=== PATIENT | male | born 1950 | race African-American/Black ===

== ENCOUNTER 2017-09-16 12:56 | Inpatient (IN) | payer SELFPAY ==
[~2017-09-16] VITALS: Ht 167.6 cm; Wt 51.3 kg
[2017-09-16] MEDS ORDERED: Vancomycin 1 GM in NS 275 ML IV ONE (13:45)
[2017-09-16] MEDS ORDERED: Cefepime HCl 1 GM in NS 55 ML IV SCH (13:45)
--- NOTE | 2017-09-16 14:13 | Emergency Room Report ---
History of Present Illness General Chief Complaint: General Complaint Source: Patient Present Illness HPI Patient is a 67-year-old male brought in by EMS after increased buttock rash. Patient was noted to have increased discoloration as well as swelling to the buttock. History is markedly limited by patient's mental status. He was noted to have some skin sore to the same area. History markedly limited by patient's mental status Allergies: Coded Allergies: No Known Allergies (Unverified , 09/16/17) Patient History Past Medical History: see triage record Past Surgical History: unable to obtain Pertinent Family History: unable to obtain Reviewed Nursing Documentation: PMH: Agreed; PSxH: Agreed Nursing Documentation-PMH Past Medical History: No History, Except For Hx Hypertension: Yes Hx Seizures: Yes Review of Systems All Other Systems: limited - by mental status Physical Exam Vital Signs Date Time Temp Pulse Resp B/P (MAP) Pulse Ox O2 Delivery O2 Flow Rate FiO2 09/16/17 12:53 98.9 100 18 120/77 93 Room Air 99.0 Sp02 EP Interpretation: reviewed, normal General Appearance: normal inspection, no apparent distress, alert, thin, Chronically Ill Head: atraumatic ENT: normal ENT inspection, hearing grossly normal, normal voice Neck: normal inspection, full range of motion, supple, no bony tend Respiratory: normal inspection, lungs clear, normal breath sounds, no respiratory distress, no retraction, no wheezing Cardiovascular #1: regular rate, rhythm, no edema Gastrointestinal: normal inspection, normal bowel sounds, non tender, soft, no guarding, no hernia Genitourinary: no CVA tenderness Musculoskeletal: normal inspection, back normal, normal range of motion Neurologic: normal inspection, alert, responsive, speech normal Psychiatric: normal inspection, judgement/insight normal, mood/affect normal Skin: no rash, other - buttock erythema, induration Medical Decision Making Diagnostic Impression: Primary Impression: Cellulitis and abscess of buttock ER Course Patient presented for buttock rash. Differential diagnosis included was not limited to abscess, cellulitis, decubitus ulcer among others. Because of complexity of patient's case laboratory testing and imaging studies were ordered.The patient was noted to have some erythema. Patient started on IV antibiotics. The patient's buttock appears to have a induration consistent with early abscess. There is no definite fluctuance at this time. Dr. Alf Nolen was contacted for inpatient management. Lab Results Impression Patient was noted to have elevated white blood count. EKG Diagnostic Results Rate: tachycardiac - 126 Rhythm: NSR ST Segments: no acute changes Last Vital Signs Date Time Temp Pulse Resp B/P (MAP) Pulse Ox O2 Delivery O2 Flow Rate FiO2 09/16/17 12:53 98.9 100 18 120/77 93 Room Air 99.0 Status: unchanged Disposition: ADMITTED INPATIENT Condition: Serious Ludin Delaney Sep 16, 2017 14:13
[2017-09-16 14:31] VITALS: BP 130/107
[2017-09-16 14:33] LABS: BASOPHILS % (AUTO) 0.8 % (0.0-2.0); EOSINOPHILS % (AUTO) 0.6 % (0.0-3.0); HEMATOCRIT 44.5 % (42.0-52.0); HEMOGLOBIN 14.9 G/DL (14.2-18.0); LYMPHOCYTES % (AUTO) 12.3 % (20.0-45.0); MEAN CORPUSCULAR VOLUME 90 FL (80-99); MONOCYTES % (AUTO) 7.1 % (1.0-10.0); NEUTROPHILS % (AUTO) 79.2 % (45.0-75.0); PLATELET COUNT 164 K/UL (150-450); RED BLOOD COUNT 4.96 M/UL (4.70-6.10); RED CELL DISTRIBUTION WIDTH 13.6 % (11.6-14.8); WHITE BLOOD COUNT 13.9 K/UL (4.8-10.8)
[2017-09-16 14:46] LABS: ANION GAP 10 mmol/L (5-15); BLOOD UREA NITROGEN 25 mg/dL (7-18); CALCIUM 9.8 MG/DL (8.5-10.1); CARBON DIOXIDE 30 MMOL/L (21-32); CHLORIDE 118 MMOL/L (98-107); CREATININE 0.7 MG/DL (0.55-1.30); POTASSIUM 3.3 MMOL/L (3.5-5.1); SODIUM 158 MMOL/L (136-145)
[2017-09-16 14:54] LABS: APPEARANCE,URINE SLIGHTLY CLOUDY; BILIRUBIN, URINE NEGATIVE (NEGATIVE); GLUCOSE, URINE (UA) NEGATIVE (NEGATIVE); KETONES,URINE 1+ (NEGATIVE); LEUKOCYTE ESTERASE ,URINE 1+ (NEGATIVE); NITRITE,URINE NEGATIVE (NEGATIVE); PH,URINE 7 (4.5-8.0); PROTEIN,URINE 1+ (NEGATIVE); UROBILINOGEN,URINE 4 MG/DL (0.0-1.0)
[2017-09-16 14:57] LABS: COLOR,URINE YELLOW
[2017-09-16 15:01] LABS: ALANINE AMINOTRANSFERASE 34 U/L (12-78); ALBUMIN 3.8 G/DL (3.4-5.0); ALBUMIN/GLOBULIN RATIO 0.8 (1.0-2.7); ALKALINE PHOSPHATASE 115 U/L (46-116); ASPARTATE AMINO TRANSFERASE 21 U/L (15-37); BILIRUBIN,TOTAL 0.6 MG/DL (0.2-1.0); CKMB 0.8 NG/ML (0.0-3.6); CREATINE KINASE 102 U/L (26-308); PHOSPHORUS 2.6 MG/DL (2.5-4.9)
--- NOTE | 2017-09-16 15:52 | Diagnostic Imaging Report ---
Indication: Shortness of breath Technique: One view of the chest Comparison: none Findings: Atelectatic changes are seen at both lung bases, left greater than right. No infiltrates. Normal heart size. Tortuous somewhat ectatic aorta. Left subclavian venous stent is noted. Impression: Bilateral basilar atelectasis. No acute process otherwise
[2017-09-16 15:59] VITALS: BP 94/80
[2017-09-16 17:30] VITALS: BP 125/88
--- NOTE | 2017-09-16 17:30 | History and Physical Report ---
DATE OF ADMISSION: 09/16/2017 TIME: 3 p.m. CONSULTANTS: 1. Chan Wan M.D. 2. Avinash Gaines M.D. 3. Romy Holland M.D. CHIEF COMPLAINT: Right buttock cellulitis and wound. BRIEF HISTORY: This is a 67-year-old male from [facility] presented with the above-mentioned diagnosis for a couple days with increased redness in the right buttock sacral area. The patient came into [place], diagnosed with the right buttock wound, leukocytosis, and cellulitis, and being admitted to medical floor for further treatment. Currently, calm in bed, confused, and nonverbal. PAST MEDICAL HISTORY: Encephalopathy and contracture. PAST SURGICAL HISTORY: Unknown. MEDICATIONS: Vancomycin, cefepime, and metronidazole. ALLERGIES: Denies. SOCIAL HISTORY: Unable to obtain. REVIEW OF SYSTEMS: Unavailable. PHYSICAL EXAMINATION: GENERAL: Lethargic in bed and nonverbal. Contracted at knee and hip. VITAL SIGNS: Show temperature is 100.6, pulse 124, respirations 21, and blood pressure 130/107. CARDIOVASCULAR: No murmur. LUNGS: Distant and clear. ABDOMEN: Bowel sounds positive. Nontender. Nondistended. EXTREMITIES: No cyanosis, clubbing, or edema. Right buttock sacral area on the right with slight 2 inch x 2 inch redness. No skin breakage. NEUROLOGIC: The patient moves all extremities, but slightly weak. LABORATORY AND DIAGNOSTIC DATA: Labs, at this time, show white count 13.9, otherwise CBC is normal. BMP shows sodium 158, potassium 3.3, chloride 118, BUN 25, and glucose 108. INR is 1.0. PTT 23. Urinalysis show 1+ leukocyte esterase. ASSESSMENT: 1. Right buttock cellulitis. 2. Urinary tract infection. 3. Leukocytosis. 4. Hypokalemia. 5. Encephalopathy. 6. Contracture. 7. Renal insufficiency. 8. Hypernatremia. PLAN: 1. Continue premeds. 2. OT, PT, and dietary evaluation. 3. Wound care. 4. CBC and BMP in the morning. 5. Antibiotics per Infectious Disease. 6. Resume home medications. 7. Dr. Wan, Dr. Gaines, Dr. Holland, Dr. Garcia, and Dr. Rendon to consult. 8. We will continue to follow this patient medically. Alf Nolen D.O. DR: ADAN JOB#: [id number] CC:
[2017-09-16] MEDS ORDERED: KEPPRA500 M3 ORAL (18:02)
[2017-09-16] MEDS ORDERED: FENOFIBRATE48 MG ORAL (18:02)
[2017-09-16] MEDS ORDERED: BENZTROPINE MESY1 MG PO (18:02)
[2017-09-16] MEDS ORDERED: DONEPEZIL HCL5 MG ORAL (18:02)
[2017-09-16] MEDS ORDERED: MOM30 ML ORAL (18:02)
[2017-09-16] MEDS ORDERED: LORAZEPAM1 MG ORAL (18:02)
[2017-09-16] MEDS ORDERED: OLANZAPINE10 MG ORAL (18:03)
[2017-09-16] MEDS ORDERED: QUETIAPINE FUMA50 MG ORAL (18:03)
[2017-09-16] MEDS ORDERED: MULTIVITAMINS1 EAC8 ORAL (18:03)
[2017-09-16] MEDS ORDERED: D5 1/2NS 1,000 ML IV SCH (18:30)
[2017-09-16] MEDS ORDERED: Milk of Magnesia 30ml Ud ORAL PRN (18:30)
[2017-09-16] MEDS ORDERED: LORazepam 1mg tab ORAL PRN (18:30)
[2017-09-16] MEDS: Benztropine 1mg tab ORAL SCH (18:55)
[2017-09-16 20:00] VITALS: BP 112/67
--- NOTE | 2017-09-16 20:25 | Cardiology Progress Note ---
Assessment/Plan Assessment/Plan The patient is seen and examined, full consult note will be dictated. Objective Last 24 Hour Vital Signs Date Time Temp Pulse Resp B/P (MAP) Pulse Ox O2 Delivery O2 Flow Rate FiO2 09/16/17 17:30 97.9 116 16 125/88 94 Room Air 97.9 09/16/17 17:17 125 27 94/80 92 Room Air 09/16/17 15:59 125 27 94/80 92 Room Air 09/16/17 14:31 100.6 124 21 130/107 93 Room Air 100.6 09/16/17 12:53 98.9 100 18 120/77 93 Room Air 99.0 Laboratory Tests Test 09/16/17 14:00 09/16/17 14:46 White Blood Count 13.9 K/UL (4.8-10.8) H Red Blood Count 4.96 M/UL (4.70-6.10) Hemoglobin 14.9 G/DL (14.2-18.0) Hematocrit 44.5 % (42.0-52.0) Mean Corpuscular Volume 90 FL (80-99) Mean Corpuscular Hemoglobin 29.9 PG (27.0-31.0) Mean Corpuscular Hemoglobin Concent 33.4 G/DL (32.0-36.0) Red Cell Distribution Width 13.6 % (11.6-14.8) Platelet Count 164 K/UL (150-450) Mean Platelet Volume 10.0 FL (6.5-10.1) Neutrophils (%) (Auto) 79.2 % (45.0-75.0) H Lymphocytes (%) (Auto) 12.3 % (20.0-45.0) L Monocytes (%) (Auto) 7.1 % (1.0-10.0) Eosinophils (%) (Auto) 0.6 % (0.0-3.0) Basophils (%) (Auto) 0.8 % (0.0-2.0) Prothrombin Time 10.5 SEC (9.30-11.50) Prothromb Time International Ratio 1.0 (0.9-1.1) Activated Partial Thromboplast Time 23 SEC (23-33) Sodium Level 158 MMOL/L (136-145) H Potassium Level 3.3 MMOL/L (3.5-5.1) L Chloride Level 118 MMOL/L (98-107) H Carbon Dioxide Level 30 MMOL/L (21-32) Anion Gap 10 mmol/L (5-15) Blood Urea Nitrogen 25 mg/dL (7-18) H Creatinine 0.7 MG/DL (0.55-1.30) Estimat Glomerular Filtration Rate > 60 mL/min (>60) Glucose Level 108 MG/DL (74-106) H Lactic Acid Level 1.50 mmol/L (0.66-2.22) Calcium Level 9.8 MG/DL (8.5-10.1) Phosphorus Level 2.6 MG/DL (2.5-4.9) Magnesium Level 2.2 MG/DL (1.8-2.4) Total Bilirubin 0.6 MG/DL (0.2-1.0) Aspartate Amino Transf (AST/SGOT) 21 U/L (15-37) Alanine Aminotransferase (ALT/SGPT) 34 U/L (12-78) Alkaline Phosphatase 115 U/L (46-116) Total Creatine Kinase 102 U/L (26-308) Creatine Kinase MB 0.8 NG/ML (0.0-3.6) Creatine Kinase MB Relative Index 0.7 Troponin I 0.000 ng/mL (0.000-0.056) Total Protein 8.3 G/DL (6.4-8.2) H Albumin 3.8 G/DL (3.4-5.0) Globulin 4.5 g/dL Albumin/Globulin Ratio 0.8 (1.0-2.7) L Urine Color Yellow Urine Appearance Slightly cloudy Urine pH 7 (4.5-8.0) Urine Specific [place] 1.010 (1.005-1.035) Urine Protein 1+ (NEGATIVE) H Urine Glucose (UA) Negative (NEGATIVE) Urine Ketones 1+ (NEGATIVE) H Urine Occult Blood Negative (NEGATIVE) Urine Nitrite Negative (NEGATIVE) Urine Bilirubin Negative (NEGATIVE) Urine Urobilinogen 4 MG/DL (0.0-1.0) H Urine Leukocyte Esterase 1+ (NEGATIVE) H Urine RBC 0-2 /HPF (0 - 0) H Urine WBC 2-4 /HPF (0 - 0) Urine Squamous Epithelial Cells None /LPF (NONE/OCC) Urine Amorphous Sediment Few /LPF (NONE) H Urine Bacteria Few /HPF (NONE) JAIR,SHAYLEE Sep 16, 2017 20:25
[2017-09-16] MEDS: Donepezil 5mg Tab ORAL SCH (20:57)
[2017-09-16] MEDS: Heparin 5000 units/ml inj SUBQ SCH (20:59)
[2017-09-17] VITALS: BP 134/80
--- NOTE | 2017-09-17 01:15 | Consultation ---
DATE OF CONSULTATION: 09/16/2017 CARDIOLOGY CONSULTATION CONSULTING PHYSICIAN: Walt Garcia M.D. REFERRING PHYSICIAN: Alf Nolen D.O. REASON FOR CONSULTATION: Management of tachycardia. HISTORY OF PRESENT ILLNESS: The patient is a very unfortunate 67-year-old gentleman who was brought in by EMS after increased buttock rash. The patient was noted to have increased discoloration and swelling of the buttock. Initial evaluation in the emergency department showed blood pressure 120/77 mmHg with heart rate of 100. The patient had a 12-lead electrocardiogram, which showed sinus tachycardia, rate of [address] and T-wave abnormalities. He was admitted to Med/Surg unit for evaluation and management of the above. Cardiology consultation was made at request of Dr. Nolen for evaluation and management of tachycardia. At the bedside, the patient is in a position, not coherent and not providing any history. This report is prepared by review of old records. PAST MEDICAL HISTORY: Includes: 1. Hypertension and history of seizures. 2. History of dementia. 3. History of depression. 4. History of dyslipidemia. MEDICATIONS: List of medication includes 1. Benztropine mesylate 1 mg p.o. twice daily. 2. Donepezil 5 mg p.o. at bedtime. 3. 4. Levetiracetam 500 mg twice daily. 5. Lorazepam 1 mg p.o. q.6 hours. 6. Milk of magnesia 30 mL p.o. daily. 7. Multivitamin one tablet p.o. daily. 8. Olanzapine 10 mg p.o. daily 9. Quetiapine fumarate 50 mg p.o. at bedtime. ALLERGIES: No known drug allergies. PAST SURGICAL HISTORY: None. FAMILY HISTORY: No premature coronary artery disease in the first-degree relatives according to the records. REVIEW OF SYSTEMS: A 12-point system review could not be obtained due to the patient's limited mental status. PHYSICAL EXAMINATION: VITAL SIGNS: Blood pressure at time of arrival to the hospital 120/77, respirations of 18, pulse of 100, temperature 98.9 degrees Fahrenheit, and O2 saturation 92% on room air. GENERAL: The patient is a very unfortunate 67-year-old gentleman who is in position and not quite coherent, not communicating verbally at this time. He appears to be naked. HEENT: Atraumatic and normocephalic. Pupils are equal, round, reactive to light and accommodation. Extraocular muscles intact. NECK: JVP less than 5 centimeter. No carotid bruit. Carotid upstrokes 2+ bilaterally. CARDIOVASCULAR: Normal S1 and S2. Regular rate and rhythm. No murmurs, gallops, or rubs. Tachycardic. PMI is at fourth intercostal space at the midclavicular line. LUNGS: Clear to auscultation bilaterally. ABDOMEN: Soft, nontender, nondistended. No hepatosplenomegaly. Positive bowel sounds. EXTREMITIES: No evidence of edema, clubbing, or cyanosis. There is erythema and induration over buttocks on both sides. LABORATORY AND DIAGNOSTIC DATA: WBC 13.9, hemoglobin 14.9, hematocrit of 44.5, platelet count 164. Sodium 158, potassium is 3.3, chloride 118, bicarbonate 30, BUN 25, creatinine 0.7, glucose 108. Calcium is 9.8. Troponin I was 0.0. CK-MB 1.8. Magnesium of 2.2. INR is 1.0. ASSESSMENT AND PLAN: The patient is a very unfortunate 67-year-old gentleman, seen in Cardiology consultation at request of Dr. Nloen. 1. Sinus tachycardia. This is most likely due to intravascular volume depletion as the patient shows evidence of hypernatremia or free water deficit. The patient's BUN and creatinine ratio over 20 as well in favor of hypovolemia. This patient will benefit from D5 water and free water administration. Nephrology consultation is required for adjusting and decreasing serum sodium on a timely fashion to avoid encephalopathy. 2. Hypokalemia, potassium replacement to avoid cardiac arrhythmias. 3. History of hypertension. At this time, the patient appears to be somewhat hypotensive likely due to hypovolemia, a few blood pressure shows systolic blood pressure of 94 mmHg. At this time, we do not prescribe any blood pressure medication. We will observe the blood pressure in this admission. I would like to thank, Dr. Nolen, for allowing me to participate in care of this patient. Walt Garcia M.D. DR: Lynne JOB#: [id number] CC:
[2017-09-17 04:00] VITALS: BP 121/74
[2017-09-17 06:44] LABS: ANION GAP 11 mmol/L (5-15); BLOOD UREA NITROGEN 23 mg/dL (7-18); CARBON DIOXIDE 26 MMOL/L (21-32); CHLORIDE 119 MMOL/L (98-107); CREATININE 0.7 MG/DL (0.55-1.30); SODIUM 156 MMOL/L (136-145)
[2017-09-17 07:11] LABS: HEMOGLOBIN 13.8 G/DL (14.2-18.0); MEAN CORPUSCULAR VOLUME 89 FL (80-99); PLATELET COUNT 141 K/UL (150-450); RED BLOOD COUNT 4.63 M/UL (4.70-6.10); RED CELL DISTRIBUTION WIDTH 13.3 % (11.6-14.8); WHITE BLOOD COUNT 13.9 K/UL (4.8-10.8)
[2017-09-17 08:00] VITALS: BP 136/118
[2017-09-17] MEDS: Benztropine 1mg tab ORAL SCH ×4 (08:18→17:44)
--- NOTE | 2017-09-17 08:19 | General Progress Note ---
Progress Note Progress Note full consult dictated TAVO SOLANO Sep 17, 2017 08:19
[2017-09-17] MEDS: levETIRAcetam 500mg/5ml Liquid ORAL SCH ×2 (08:20→20:38)
[2017-09-17] MEDS: Heparin 5000 units/ml inj SUBQ SCH ×2 (08:47→20:38)
[2017-09-17] MEDS ORDERED: D5W w/KCl 20mEq 1,000 ML IV SCH (09:45)
[2017-09-17] MEDS ORDERED: Morphine Sulfate 4mg/ml Inj IVP PRN (11:45)
[2017-09-17 12:00] VITALS: BP 123/79
[2017-09-17] MEDS: OLANZapine 10mg tab ORAL SCH (12:32)
--- NOTE | 2017-09-17 13:09 | Consultation ---
Consult Note Consult Note # [id number] Avinash Gaines MD Sep 17, 2017 13:09
[2017-09-17] MEDS: KCL IV SCH ×4 (13:11→23:35)
[2017-09-17] MEDS: D5W IV SCH ×4 (13:11→23:35)
[2017-09-17 14:35] LABS: APPEARANCE,URINE CLEAR; BILIRUBIN, URINE NEGATIVE (NEGATIVE); GLUCOSE, URINE (UA) NEGATIVE (NEGATIVE); KETONES,URINE 1+ (NEGATIVE); LEUKOCYTE ESTERASE ,URINE 1+ (NEGATIVE); NITRITE,URINE NEGATIVE (NEGATIVE); PH,URINE 5 (4.5-8.0); PROTEIN,URINE 1+ (NEGATIVE); UROBILINOGEN,URINE 1 MG/DL (0.0-1.0)
[2017-09-17 14:44] LABS: COLOR,URINE YELLOW
--- NOTE | 2017-09-17 14:51 | General Progress Note ---
Assessment/Plan Problem List: (1) Sepsis ICD Codes: A41.9 - Sepsis, unspecified organism SNOMED: 04783807 (2) UTI (urinary tract infection) ICD Codes: N39.0 - Urinary tract infection, site not specified SNOMED: 55430514 (3) Renal insufficiency ICD Codes: N28.9 - Disorder of kidney and ureter, unspecified SNOMED: 237754998, 231323854 (4) Encephalopathy ICD Codes: G93.40 - Encephalopathy, unspecified SNOMED: 94018665 (5) Contracture of hip ICD Codes: M24.559 - Contracture, unspecified hip SNOMED: 152501595 (6) Cellulitis ICD Codes: L03.90 - Cellulitis, unspecified SNOMED: 451785445 (7) Abscess ICD Codes: L02.91 - Cutaneous abscess, unspecified SNOMED: 740387052 Status: unchanged Assessment/Plan ot pt diet wound care abx cbc bmp am Subjective Constitutional: Reports: weakness Allergies: Coded Allergies: No Known Allergies (Unverified , 09/16/17) All Systems: reviewed and negative except above Subjective sl confused in bed Objective Last 24 Hour Vital Signs Date Time Temp Pulse Resp B/P (MAP) Pulse Ox O2 Delivery O2 Flow Rate FiO2 09/17/17 12:00 100.1 124 16 123/79 94 100.1 09/17/17 08:00 98.4 121 16 136/118 94 98.4 09/17/17 04:00 97.8 90 20 121/74 96 97.8 09/17/17 04:00 96 Room Air 09/17/17 00:00 100 Room Air 09/17/17 00:00 97.7 98 20 134/80 100 97.7 09/16/17 21:43 96 Room Air 09/16/17 20:00 97.8 82 20 112/67 88 97.8 09/16/17 17:30 97.9 116 16 125/88 94 Room Air 97.9 09/16/17 17:17 125 27 94/80 92 Room Air 09/16/17 15:59 125 27 94/80 92 Room Air Intake and Output 09/16/17 09/17/17 18:59 06:59 Intake Total 155 ml 650 ml Balance 155 ml 650 ml Intake Oral 0 ml 100 ml IV Total 155 ml 550 ml # Voids 1 4 # Bowel Movements 1 Laboratory Tests 09/17/17 05:50: White Blood Count 13.9H, Red Blood Count 4.63L, Hemoglobin 13.8L, Hematocrit 41.0L, Mean Corpuscular Volume 89, Mean Corpuscular Hemoglobin 29.8, Mean Corpuscular Hemoglobin Concent 33.5, Red Cell Distribution Width 13.3, Platelet Count 141L, Mean Platelet Volume 10.0, Neutrophils (%) (Auto) , Lymphocytes (%) (Auto) , Monocytes (%) (Auto) , Eosinophils (%) (Auto) , Basophils (%) (Auto) , Differential Total Cells Counted 100, Neutrophils % (Manual) 89H, Lymphocytes % (Manual) 4L, Monocytes % (Manual) 5, Eosinophils % (Manual) 2, Basophils % ( Manual) 0, Band Neutrophils 0, Platelet Estimate Adequate, Platelet Morphology Normal, Red Blood Cell Morphology Normal, Sodium Level 156H, Potassium Level 3.0L, Chloride Level 119H, Carbon Dioxide Level 26, Anion Gap 11, Blood Urea Nitrogen 23H, Creatinine 0.7, Estimat Glomerular Filtration Rate > 60, Glucose Level 118H, Calcium Level 9.0 09/17/17 14:20: Urine Color Yellow, Urine Appearance Clear, Urine pH 5, Urine Specific [place] 1.025, Urine Protein 1+H, Urine Glucose (UA) Negative, Urine Ketones 1+H, Urine Occult Blood 1+H, Urine Nitrite Negative, Urine Bilirubin Negative, Urine Urobilinogen 1H, Urine Leukocyte Esterase 1+H, Urine RBC 0-2H, Urine WBC 2-4, Urine Squamous Epithelial Cells Occasional, Urine Bacteria Occasional, Urine Mucus FewH, Urine Eosinophils [Pending], Urine Random Creatinine [Pending], Urine Random Microalbumin [Pending], Urine Random Total Protein [Pending], Urine Random Sodium [Pending], Urine Creatinine [Pending], Urine Microalbumin/ Creatinine Ratio [Pending] Height (Feet): 5 Height (Inches): 6.00 Weight (Pounds): 113 General Appearance: lethargic, confused EENT: normal ENT inspection Neck: normal alignment Cardiovascular: normal peripheral pulses, normal rate, regular rhythm Respiratory/Chest: chest wall non-tender, lungs clear, normal breath sounds Abdomen: normal bowel sounds, non tender, soft Extremities: normal inspection Edema: no edema noted Arm (L), no edema noted Arm (R), no edema noted Leg (L), no edema noted Leg (R), no edema noted Pedal (L), no edema noted Pedal (R), no edema noted Generalized Neurologic: motor weakness Skin: normal pigmentation, warm/dry Objective r sacral w 2" x 2" are redness and swelling ARNOLDO JESUS Sep 17, 2017 14:50
--- NOTE | 2017-09-17 15:04 | Operative Note - PDOC ---
Operative Note Operative Note Date of Operation/Procedure: Sep 17, 2017 Pre-op Diagnosis: right buttock abscess Procedure: incision and drainage of right buttock abscess Post-op Diagnosis: same as pre-op Surgeon: juan diego Anesthesia: other - pre medicated with narcotics Specimen: yes - cultures Complications: none Condition: stable Estimated Blood Loss: minimal Drains: none Implant(s) used?: No Indications for Procedure 67M large right buttock abscess noted recently and worsening. low grade fevers , leukocytosis, pain. erythema, edema, area of induration and cellulitis as well. I&D indicated and recommended. medically necessary or potential worsening condition vs sepsis. patient not consentable and no one to consent. two physician consent obtained. Description of Procedure patient made comfortable at bedside. area identified and cleaned. #11 scalpel used to make cruciate incision over fluctuance. pus evacuated and cultured. wound cleaned, packing and dressings applied. Chan Wan Sep 17, 2017 15:04
[2017-09-17 16:00] VITALS: BP 120/81
[2017-09-17] MEDS: Vancomycin 750mg/NS 250ml IVPB SCH (17:44)
--- NOTE | 2017-09-17 19:15 | Consultation ---
DATE OF CONSULTATION: 09/17/2017 INFECTIOUS DISEASE CONSULTATION CONSULTING PHYSICIAN: Avinash Gaines M.D. REQUESTING PHYSICIAN: Alf Nolen D.O. REASON FOR CONSULTATION: Evaluation of the patient for right buttock abscess and antibiotic management. HISTORY OF PRESENT ILLNESS: The patient is a 67-year-old male with multiple medical problems as listed below, who was [facility] center because of the redness, erythema suggestive of right buttock abscess. The patient also was found to have low-grade fever. Infectious Diseases consultation has been requested for further evaluation of the patient's antibiotic management. PAST MEDICAL HISTORY: 1. Dementia. 2. Seizure. 3. Epilepsy. 4. Hyperlipidemia. 5. Hypertension. 6. Schizophrenia. 7. Depression/anxiety. MEDICATIONS: IV vancomycin. ALLERGIES: No known drug allergies. SOCIAL HISTORY: The patient lies in [facility]. FAMILY HISTORY: Unavailable. REVIEW OF SYSTEMS: Unobtainable. PHYSICAL EXAMINATION: VITAL SIGNS: Temperature 100.1 degrees, T-max 100.6 degrees, pulse 86, respiratory rate 18, and blood pressure 123/79. HEENT: No pale conjunctivae. No icterus. NECK: No lymphadenopathy. CHEST: Clear. HEART: S1 and S2. ABDOMEN: Soft. EXTREMITIES: The patient has an erythema over the right buttock area suggestive of cellulitis, tender on touch. LABORATORY AND DIAGNOSTIC DATA: White blood cells 13.9, hemoglobin 13.8 and hematocrit 41. BUN 23 and creatinine 0.7. ALT, AST, and alkaline phosphatase unremarkable. Chest x-ray, basilar atelectasis. ASSESSMENT: The patient is a 67-year-old male with 1. Right buttock abscess (most likely due to Staphylococcus aureus, possible MRSA). 2. Low-grade fever. 3. Rule out bacteremia. PLAN: 1. We will continue the patient on IV vancomycin. 2. Monitor CBC. 3. Monitor BMP. 4. Monitor blood culture. 5. Surgical consultation for incision and drainage. 6. Based on the patient's clinical course and laboratories, we will do further recommendation. Thank you, Dr. Alf Nolen, for allowing me to participate in the care of this patient. I will follow the patient with you during this hospitalization. Avinash Gaines M.D. DR: KENZIE JOB#: [id number] CC:
[2017-09-17 20:00] VITALS: BP 122/79
--- NOTE | 2017-09-17 20:15 | Consultation ---
DATE OF CONSULTATION: 09/17/2017 NEPHROLOGY CONSULTATION CONSULTING PHYSICIAN: Celia Rendon M.D. REFERRING PHYSICIAN: Alf Nolen D.O. REASON FOR CONSULTATION: Hypernatremia, acute renal failure, and electrolyte imbalance. HISTORY OF PRESENT ILLNESS: The patient is an unfortunate, 67-year-old male with past medical history significant for history of psychiatric disease, dementia, dyslipidemia, hypertension, seizure disorder, who was brought in to [facility] for increasing rash in his buttock area. Upon arrival in the ER, the patient's blood pressure was stable and was found to have hypernatremia, hypokalemia, and acute renal failure. I was called for management of renal disease and electrolyte imbalance. PAST MEDICAL HISTORY: History of seizure disorder, history of dementia, and history of dyslipidemia, and history of hypertension. HOME MEDICATIONS: 1. Benztropine 1 mg p.o. b.i.d. 2. Aricept 5 mg p.o. daily. 3. Levothyroxine 500 mg 4. Lorazepam 1 mg daily. 5. Milk of magnesium p.r.n. 6. MVI 1 tablet p.o. daily. 7. Seroquel mg p.o. daily. ALLERGIES: No known drug allergies. SOCIAL HISTORY: Lives at [facility]. There is no history of tobacco, alcohol, or drug use. FAMILY HISTORY: Noncontributory. REVIEW OF SYSTEMS: Unable to obtain due to the patient's condition. The patient is not providing any answers to my questions and not following commands. PHYSICAL EXAMINATION: VITAL SIGNS: The patient had temperature of 98 degrees, blood pressure 120/77, pulse rate of 100, and respiratory rate of 18. HEAD AND NECK: No JVP. No LAD. No thyromegaly. Extraocular movements intact. Pupils are reactive to light and accommodation. LUNGS: Clear to auscultation. CARDIAC: Regular rate and rhythm. S1 and S2. No murmur. No rub. ABDOMEN: Soft, nontender, and nondistended. EXTREMITIES: No edema. No clubbing. No cyanosis. LABORATORY AND DIAGNOSTIC DATA: WBC count of 13,000, hemoglobin of 13.8, hematocrit of 41, platelet count of 141. Chemistry reveals sodium of 156, potassium of 3, chloride 119, bicarbonate 26, BUN of 23, creatinine of 0.7, glucose of 118, and calcium of 9. UA revealed specific gravity of 1.015, pH of 7, ketone 1+, urobilinogen of 4, leukocyte esterase +1, rbc's 0 to 2, wbc's 2 to 4, and bacteria few. ASSESSMENT: 1. Hypernatremia. 2. Hypokalemia. 3. Dehydration. 4. Possible urinary tract infection. PLAN: Plan for the patient is to obtain UA. Check the random urine protein-creatinine ratio to calculate the proteinuria. Check the urine sodium- creatinine to calculate fractional excretion of sodium. Ultrasound of the kidney to evaluate the kidney size. Replace electrolytes. Start the patient on D5W plus 40 KCl. I would like to thank Dr. Alf Nolen for allowing me to participate in the care of this patient. Celia Rendon M.D. DR: BENITO JOB#: [id number] CC:
[2017-09-17] MEDS: Donepezil 5mg Tab ORAL SCH (20:37)
--- NOTE | 2017-09-17 21:47 | Cardiology Progress Note ---
Assessment/Plan Assessment/Plan 1. Sinus tachycardia, continue hydration, correct electrolyte abnormalities. 2. Hypokalemia, potassium replacement to avoid cardiac arrhythmias. 3. History of hypertension. Subjective ROS Limited/Unobtainable: Yes Cardiovascular: Reports: no symptoms Respiratory: Reports: no symptoms Gastrointestinal/Abdominal: Reports: no symptoms Genitourinary: Reports: no symptoms Subjective Not on the telemetry unit. High pulse rate reported by the nurse. Objective Last 24 Hour Vital Signs Date Time Temp Pulse Resp B/P (MAP) Pulse Ox O2 Delivery O2 Flow Rate FiO2 09/17/17 16:00 98.4 121 20 120/81 97 98.4 09/17/17 12:00 100.1 124 16 123/79 94 100.1 09/17/17 08:00 98.4 121 16 136/118 94 98.4 09/17/17 04:00 97.8 90 20 121/74 96 97.8 09/17/17 04:00 96 Room Air 09/17/17 00:00 100 Room Air 09/17/17 00:00 97.7 98 20 134/80 100 97.7 Intake and Output 09/16/17 09/17/17 19:00 07:00 Intake Total 155 ml 700 ml Balance 155 ml 700 ml Intake Oral 0 ml 100 ml IV Total 155 ml 600 ml # Voids 1 4 # Bowel Movements 1 Laboratory Tests Test 09/17/17 05:50 09/17/17 14:20 White Blood Count 13.9 K/UL (4.8-10.8) H Red Blood Count 4.63 M/UL (4.70-6.10) L Hemoglobin 13.8 G/DL (14.2-18.0) L Hematocrit 41.0 % (42.0-52.0) L Mean Corpuscular Volume 89 FL (80-99) Mean Corpuscular Hemoglobin 29.8 PG (27.0-31.0) Mean Corpuscular Hemoglobin Concent 33.5 G/DL (32.0-36.0) Red Cell Distribution Width 13.3 % (11.6-14.8) Platelet Count 141 K/UL (150-450) L Mean Platelet Volume 10.0 FL (6.5-10.1) Neutrophils (%) (Auto) % (45.0-75.0) Lymphocytes (%) (Auto) % (20.0-45.0) Monocytes (%) (Auto) % (1.0-10.0) Eosinophils (%) (Auto) % (0.0-3.0) Basophils (%) (Auto) % (0.0-2.0) Differential Total Cells Counted 100 Neutrophils % (Manual) 89 % (45-75) H Lymphocytes % (Manual) 4 % (20-45) L Monocytes % (Manual) 5 % (1-10) Eosinophils % (Manual) 2 % (0-3) Basophils % (Manual) 0 % (0-2) Band Neutrophils 0 % (0-8) Platelet Estimate Adequate Platelet Morphology Normal Red Blood Cell Morphology Normal Sodium Level 156 MMOL/L (136-145) H Potassium Level 3.0 MMOL/L (3.5-5.1) L Chloride Level 119 MMOL/L (98-107) H Carbon Dioxide Level 26 MMOL/L (21-32) Anion Gap 11 mmol/L (5-15) Blood Urea Nitrogen 23 mg/dL (7-18) H Creatinine 0.7 MG/DL (0.55-1.30) Estimat Glomerular Filtration Rate > 60 mL/min (>60) Glucose Level 118 MG/DL (74-106) H Calcium Level 9.0 MG/DL (8.5-10.1) Urine Color Yellow Urine Appearance Clear Urine pH 5 (4.5-8.0) Urine Specific [place] 1.025 (1.005-1.035) Urine Protein 1+ (NEGATIVE) H Urine Glucose (UA) Negative (NEGATIVE) Urine Ketones 1+ (NEGATIVE) H Urine Occult Blood 1+ (NEGATIVE) H Urine Nitrite Negative (NEGATIVE) Urine Bilirubin Negative (NEGATIVE) Urine Urobilinogen 1 MG/DL (0.0-1.0) H Urine Leukocyte Esterase 1+ (NEGATIVE) H Urine RBC 0-2 /HPF (0 - 0) H Urine WBC 2-4 /HPF (0 - 0) Urine Squamous Epithelial Cells Occasional /LPF Urine Bacteria Occasional /HPF (NONE) Urine Mucus Few /LPF (NONE/OCC) H Urine Eosinophils None seen Urine Random Creatinine Pending Urine Random Microalbumin Pending Urine Random Total Protein 34 MG/DL (< 11.9) H Urine Random Sodium 79 mmol/L (20-110) Urine Creatinine 196.4 MG/DL (30.0-125.0) H Urine Microalbumin/Creatinine Ratio Pending Objective HEENT: Atraumatic and normocephalic. Pupils are equal, round, reactive to light and accommodation. Extraocular muscles intact. NECK: JVP less than 5 centimeter. No carotid bruit. Carotid upstrokes 2+ bilaterally. CARDIOVASCULAR: Normal S1 and S2. Regular rate and rhythm. No murmurs, gallops, or rubs. Tachycardic. PMI is at fourth intercostal space at the midclavicular line. LUNGS: Clear to auscultation bilaterally. ABDOMEN: Soft, nontender, nondistended. No hepatosplenomegaly. Positive bowel sounds. EXTREMITIES: No evidence of edema, clubbing, or cyanosis. There is erythema and induration over buttocks on both sides. SHAYLEE ADAM Sep 17, 2017 21:47
[2017-09-18] VITALS: BP 120/81
[2017-09-18 04:00] VITALS: BP 102/71
--- NOTE | 2017-09-18 07:43 | Nephrology Progress Note ---
Assessment/Plan Assessment 1. Hypernatremia. 2. Hypokalemia. 3. Dehydration. 4. Possible urinary tract infection. Plan plan continue ivf D5W+KCL monitoring renal function avoid NSAID check pre-albumin Subjective ROS Limited/Unobtainable: Yes Constitutional: Reports: no symptoms HEENT: Reports: no symptoms Genitourinary: Reports: no symptoms Neurologic/Psychiatric: Reports: no symptoms Objective Objective Last 24 Hour Vital Signs Date Time Temp Pulse Resp B/P (MAP) Pulse Ox O2 Delivery O2 Flow Rate FiO2 09/18/17 04:00 97.2 105 22 102/71 96 97.2 09/18/17 04:00 Room Air 09/18/17 00:00 Room Air 09/18/17 00:00 97.7 118 20 120/81 96 97.7 09/17/17 20:00 Room Air 09/17/17 20:00 98.0 70 20 122/79 96 98.0 09/17/17 16:00 98.4 121 20 120/81 97 98.4 09/17/17 12:00 100.1 124 16 123/79 94 100.1 09/17/17 08:00 98.4 121 16 136/118 94 98.4 Intake and Output 09/17/17 09/18/17 19:00 07:00 Intake Total 1456.667 ml 1183.333 ml Balance 1456.667 ml 1183.333 ml Intake Oral 740 ml IV Total 716.667 ml 1183.333 ml # Voids 6 2 Laboratory Tests 09/17/17 14:20: Urine Color Yellow, Urine Appearance Clear, Urine pH 5, Urine Specific [place] 1.025, Urine Protein 1+H, Urine Glucose (UA) Negative, Urine Ketones 1+H, Urine Occult Blood 1+H, Urine Nitrite Negative, Urine Bilirubin Negative, Urine Urobilinogen 1H, Urine Leukocyte Esterase 1+H, Urine RBC 0-2H, Urine WBC 2-4, Urine Squamous Epithelial Cells Occasional, Urine Bacteria Occasional, Urine Mucus FewH, Urine Eosinophils None seen, Urine Random Creatinine [Pending], Urine Random Microalbumin [Pending], Urine Random Total Protein 34H, Urine Random Sodium 79, Urine Creatinine 196.4H, Urine Microalbumin/Creatinine Ratio [ Pending] Height (Feet): 5 Height (Inches): 6.00 Weight (Pounds): 113 Objective HEAD AND NECK: No JVP. No LAD. No thyromegaly. Extraocular movements intact. Pupils are reactive to light and accommodation. LUNGS: Clear to auscultation. CARDIAC: Regular rate and rhythm. S1 and S2. No murmur. No rub. ABDOMEN: Soft, nontender, and nondistended. EXTREMITIES: No edema. No clubbing. No cyanosis TAVO SOLANO Sep 18, 2017 07:43
[2017-09-18 08:00] VITALS: BP 98/66
[2017-09-18 08:29] LABS: BASOPHILS % (AUTO) 0.7 % (0.0-2.0); EOSINOPHILS % (AUTO) 3.8 % (0.0-3.0); HEMATOCRIT 37.8 % (42.0-52.0); HEMOGLOBIN 12.9 G/DL (14.2-18.0); LYMPHOCYTES % (AUTO) 22.4 % (20.0-45.0); MEAN CORPUSCULAR VOLUME 90 FL (80-99); MONOCYTES % (AUTO) 5.2 % (1.0-10.0); PLATELET COUNT 139 K/UL (150-450); RED BLOOD COUNT 4.19 M/UL (4.70-6.10); RED CELL DISTRIBUTION WIDTH 13.4 % (11.6-14.8); WHITE BLOOD COUNT 9.2 K/UL (4.8-10.8)
[2017-09-18] MEDS: levETIRAcetam 500mg/5ml Liquid ORAL SCH ×2 (08:57→21:21)
[2017-09-18] MEDS: OLANZapine 10mg tab ORAL SCH (08:57)
[2017-09-18] MEDS: Benztropine 1mg tab ORAL SCH ×2 (08:57→17:31)
[2017-09-18] MEDS: Heparin 5000 units/ml inj SUBQ SCH ×2 (08:58→21:21)
[2017-09-18 08:59] LABS: ANION GAP 7 mmol/L (5-15); BLOOD UREA NITROGEN 18 mg/dL (7-18); CALCIUM 8.5 MG/DL (8.5-10.1); CARBON DIOXIDE 28 MMOL/L (21-32); CHLORIDE 113 MMOL/L (98-107); CREATININE 0.7 MG/DL (0.55-1.30); POTASSIUM 3.3 MMOL/L (3.5-5.1); SODIUM 148 MMOL/L (136-145)
--- NOTE | 2017-09-18 10:28 | Infectious Diseases Prog Note ---
Assessment/Plan Assessment/Plan ASSESSMENT: The patient is a 67-year-old male with Right buttock abscess (most likely due to Staphylococcus aureus possible MRSA). 09/17 SP I/D Low-grade fever, SP Rule out bacteremia. Dementia. Seizure. Epilepsy. Hyperlipidemia Hypertension. Schizophrenia. Depression/anxiety PLAN: continue the patient on IV vancomycin d# 3 Monitor CBC Monitor BMP. Monitor blood culture Monitor Wnd culture Subjective Allergies: Coded Allergies: No Known Allergies (Unverified , 09/16/17) Subjective SP I / D Objective Vital Signs Last 24 Hour Vital Signs Date Time Temp Pulse Resp B/P (MAP) Pulse Ox O2 Delivery O2 Flow Rate FiO2 09/18/17 08:00 98.3 105 20 98/66 95 Room Air 98.3 09/18/17 04:00 97.2 105 22 102/71 96 97.2 09/18/17 04:00 Room Air 09/18/17 00:00 Room Air 09/18/17 00:00 97.7 118 20 120/81 96 97.7 09/17/17 20:00 Room Air 09/17/17 20:00 98.0 70 20 122/79 96 98.0 09/17/17 16:00 98.4 121 20 120/81 97 98.4 09/17/17 12:00 100.1 124 16 123/79 94 100.1 Height (Feet): 5 Height (Inches): 6.00 Weight (Pounds): 113 HEENT: mucous membranes moist Respiratory/Chest: no respiratory distress Cardiovascular: regular rhythm Abdomen: no organomegaly Microbiology Date/Time Source Procedure Growth Status 09/16/17 14:19 Blood Blood Culture - Preliminary NO GROWTH AFTER 24 HOURS Resulted 09/16/17 14:00 Blood Blood Culture - Preliminary NO GROWTH AFTER 24 HOURS Resulted 09/16/17 14:55 Rectum VRE Culture - Final NO VANCOMYCIN RESISTANT ENTEROCOCCUS ... Complete Laboratory Tests Test 09/17/17 14:20 09/18/17 08:05 Urine Color Yellow Urine Appearance Clear Urine pH 5 (4.5-8.0) Urine Specific [place] 1.025 (1.005-1.035) Urine Protein 1+ (NEGATIVE) H Urine Glucose (UA) Negative (NEGATIVE) Urine Ketones 1+ (NEGATIVE) H Urine Occult Blood 1+ (NEGATIVE) H Urine Nitrite Negative (NEGATIVE) Urine Bilirubin Negative (NEGATIVE) Urine Urobilinogen 1 MG/DL (0.0-1.0) H Urine Leukocyte Esterase 1+ (NEGATIVE) H Urine RBC 0-2 /HPF (0 - 0) H Urine WBC 2-4 /HPF (0 - 0) Urine Squamous Epithelial Cells Occasional /LPF Urine Bacteria Occasional /HPF (NONE) Urine Mucus Few /LPF (NONE/OCC) H Urine Eosinophils None seen Urine Random Creatinine Pending Urine Random Microalbumin Pending Urine Random Total Protein 34 MG/DL (< 11.9) H Urine Random Sodium 79 mmol/L (20-110) Urine Creatinine 196.4 MG/DL (30.0-125.0) H Urine Microalbumin/Creatinine Ratio Pending White Blood Count 9.2 K/UL (4.8-10.8) Red Blood Count 4.19 M/UL (4.70-6.10) L Hemoglobin 12.9 G/DL (14.2-18.0) L Hematocrit 37.8 % (42.0-52.0) L Mean Corpuscular Volume 90 FL (80-99) Mean Corpuscular Hemoglobin 30.6 PG (27.0-31.0) Mean Corpuscular Hemoglobin Concent 34.0 G/DL (32.0-36.0) Red Cell Distribution Width 13.4 % (11.6-14.8) Platelet Count 139 K/UL (150-450) L Mean Platelet Volume 11.5 FL (6.5-10.1) H Neutrophils (%) (Auto) 68.0 % (45.0-75.0) Lymphocytes (%) (Auto) 22.4 % (20.0-45.0) Monocytes (%) (Auto) 5.2 % (1.0-10.0) Eosinophils (%) (Auto) 3.8 % (0.0-3.0) H Basophils (%) (Auto) 0.7 % (0.0-2.0) Sodium Level 148 MMOL/L (136-145) H Potassium Level 3.3 MMOL/L (3.5-5.1) L Chloride Level 113 MMOL/L (98-107) H Carbon Dioxide Level 28 MMOL/L (21-32) Anion Gap 7 mmol/L (5-15) Blood Urea Nitrogen 18 mg/dL (7-18) Creatinine 0.7 MG/DL (0.55-1.30) Estimat Glomerular Filtration Rate > 60 mL/min (>60) Glucose Level 92 MG/DL (74-106) Calcium Level 8.5 MG/DL (8.5-10.1) Magnesium Level 1.7 MG/DL (1.8-2.4) L Current Medications Medications (Trade) Dose Ordered Sig/Lexus Route PRN Reason Start Time Stop Time Status Last Admin Dose Admin Acetaminophen (Tylenol) 650 mg Q4H PRN ORAL Mild Pain/Temp > 100.5 09/17/17 11:15 10/17/17 11:14 Benztropine Mesylate (Cogentin) 1 mg BID ORAL 09/16/17 18:30 10/16/17 18:29 09/18/17 08:57 Donepezil HCl (Aricept) 5 mg QHS ORAL 09/16/17 21:00 10/16/17 20:59 09/17/17 20:37 Fenofibrate (Tricor) 54 mg DAILY ORAL 09/17/17 09:00 10/17/17 08:59 09/18/17 08:57 Heparin Sodium (Porcine) (Heparin 5000 units/ml) 5,000 units EVERY 12 HOURS SUBQ 09/16/17 21:00 10/16/17 20:59 09/16/17 20:59 Levetiracetam (Keppra) 500 mg Q12HR ORAL 09/17/17 09:00 10/17/17 08:59 09/18/17 08:57 Lorazepam (Ativan) 1 mg Q6H PRN ORAL For Anxiety 09/16/17 18:30 09/23/17 18:29 Magnesium Hydroxide (Mom) 30 ml DAILYPRN PRN ORAL Constipation 09/16/17 18:30 10/16/17 18:29 Morphine Sulfate (Morphine Sulfate) 2 mg Q4H PRN IVP mod to severe pain (pain scale 09/17/17 11:45 09/24/17 11:44 09/17/17 11:43 Multivitamins (Multivitamins) 1 tab DAILY ORAL 09/17/17 09:00 10/17/17 08:59 09/18/17 08:57 Olanzapine (ZyPREXA) 10 mg DAILY ORAL 09/17/17 09:00 10/17/17 08:59 09/18/17 08:57 Potassium Chloride 40 meq/ Dextrose 1,020 ml @ 100 mls/hr [id number] IV 09/17/17 13:45 10/17/17 13:44 09/17/17 23:35 Quetiapine Fumarate (SEROquel) 50 mg BEDTIME ORAL 09/16/17 21:00 10/16/17 20:59 09/17/17 20:37 Vancomycin HCl (Vanco rx to dose) 1 ea DAILY PRN MISC Per rx protocol 09/16/17 18:30 10/16/17 18:29 Vancomycin/Sodium Chloride 250 ml @ 166.667 mls/hr Q24H IVPB 09/17/17 16:00 09/22/17 15:59 09/17/17 17:44 Avinash Gaines MD Sep 18, 2017 10:28
[2017-09-18] MEDS: D5W IV SCH ×2 (10:58)
[2017-09-18] MEDS: KCL IV SCH ×2 (10:58)
[2017-09-18 11:58] VITALS: BP 94/61
--- NOTE | 2017-09-18 12:16 | General Surgery Progress Note ---
General Surgery-Progress Note Subjective Procedure Performed incision and drainage of right buttock abscess Symptoms: improved Additional Comments doing well. comfortable. Objective Last 24 Hour Vital Signs Date Time Temp Pulse Resp B/P (MAP) Pulse Ox O2 Delivery O2 Flow Rate FiO2 09/18/17 11:58 97.7 99 18 94/61 95 Room Air 97.7 09/18/17 08:00 98.3 105 20 98/66 95 Room Air 98.3 09/18/17 04:00 97.2 105 22 102/71 96 97.2 09/18/17 04:00 Room Air 09/18/17 00:00 Room Air 09/18/17 00:00 97.7 118 20 120/81 96 97.7 09/17/17 20:00 Room Air 09/17/17 20:00 98.0 70 20 122/79 96 98.0 09/17/17 16:00 98.4 121 20 120/81 97 98.4 I&O Intake and Output 09/17/17 09/18/17 19:00 07:00 Intake Total 1456.667 ml 1183.333 ml Balance 1456.667 ml 1183.333 ml Intake Oral 740 ml IV Total 716.667 ml 1183.333 ml # Voids 6 2 Dressing: saturated Wound: clean Drains: none Cardiovascular: RSR Respiratory: clear Abdomen: soft, flat, non-tender Extremities: no edema, no tenderness, no cyanosis Laboratory Tests Test 09/17/17 14:20 09/18/17 08:05 Urine Color Yellow Urine Appearance Clear Urine pH 5 (4.5-8.0) Urine Specific [place] 1.025 (1.005-1.035) Urine Protein 1+ (NEGATIVE) H Urine Glucose (UA) Negative (NEGATIVE) Urine Ketones 1+ (NEGATIVE) H Urine Occult Blood 1+ (NEGATIVE) H Urine Nitrite Negative (NEGATIVE) Urine Bilirubin Negative (NEGATIVE) Urine Urobilinogen 1 MG/DL (0.0-1.0) H Urine Leukocyte Esterase 1+ (NEGATIVE) H Urine RBC 0-2 /HPF (0 - 0) H Urine WBC 2-4 /HPF (0 - 0) Urine Squamous Epithelial Cells Occasional /LPF Urine Bacteria Occasional /HPF (NONE) Urine Mucus Few /LPF (NONE/OCC) H Urine Eosinophils None seen Urine Random Creatinine Pending Urine Random Microalbumin Pending Urine Random Total Protein 34 MG/DL (< 11.9) H Urine Random Sodium 79 mmol/L (20-110) Urine Creatinine 196.4 MG/DL (30.0-125.0) H Urine Microalbumin/Creatinine Ratio Pending White Blood Count 9.2 K/UL (4.8-10.8) Red Blood Count 4.19 M/UL (4.70-6.10) L Hemoglobin 12.9 G/DL (14.2-18.0) L Hematocrit 37.8 % (42.0-52.0) L Mean Corpuscular Volume 90 FL (80-99) Mean Corpuscular Hemoglobin 30.6 PG (27.0-31.0) Mean Corpuscular Hemoglobin Concent 34.0 G/DL (32.0-36.0) Red Cell Distribution Width 13.4 % (11.6-14.8) Platelet Count 139 K/UL (150-450) L Mean Platelet Volume 11.5 FL (6.5-10.1) H Neutrophils (%) (Auto) 68.0 % (45.0-75.0) Lymphocytes (%) (Auto) 22.4 % (20.0-45.0) Monocytes (%) (Auto) 5.2 % (1.0-10.0) Eosinophils (%) (Auto) 3.8 % (0.0-3.0) H Basophils (%) (Auto) 0.7 % (0.0-2.0) Sodium Level 148 MMOL/L (136-145) H Potassium Level 3.3 MMOL/L (3.5-5.1) L Chloride Level 113 MMOL/L (98-107) H Carbon Dioxide Level 28 MMOL/L (21-32) Anion Gap 7 mmol/L (5-15) Blood Urea Nitrogen 18 mg/dL (7-18) Creatinine 0.7 MG/DL (0.55-1.30) Estimat Glomerular Filtration Rate > 60 mL/min (>60) Glucose Level 92 MG/DL (74-106) Calcium Level 8.5 MG/DL (8.5-10.1) Magnesium Level 1.7 MG/DL (1.8-2.4) L Plan Problems: (1) Abscess Assessment & Plan: 67M right buttock abscess s/p I&D at bedside on 09/18/2017. doing well. improved. afebrile. HD stable. leukocytosis resolved. wound clean with drainage. no significant purulent drainage. cellulitis improving. -packing and dressings TID -cont Chan Wolf Sep 18, 2017 12:16
--- NOTE | 2017-09-18 15:55 | General Progress Note ---
Assessment/Plan Problem List: (1) Sepsis ICD Codes: A41.9 - Sepsis, unspecified organism SNOMED: 40173731 (2) UTI (urinary tract infection) ICD Codes: N39.0 - Urinary tract infection, site not specified SNOMED: 79684684 (3) Renal insufficiency ICD Codes: N28.9 - Disorder of kidney and ureter, unspecified SNOMED: 511027380, 515470668 (4) Encephalopathy ICD Codes: G93.40 - Encephalopathy, unspecified SNOMED: 52724584 (5) Contracture of hip ICD Codes: M24.559 - Contracture, unspecified hip SNOMED: 813321793 (6) Cellulitis ICD Codes: L03.90 - Cellulitis, unspecified SNOMED: 839745021 (7) Abscess ICD Codes: L02.91 - Cutaneous abscess, unspecified SNOMED: 441673128 Status: stable, progressing, tolerating diet Assessment/Plan ot pt diet wound care abx cbc bmp am dc if clear Subjective Constitutional: Reports: weakness Allergies: Coded Allergies: No Known Allergies (Unverified , 09/16/17) All Systems: reviewed and negative except above Subjective sl confused in bed Objective Last 24 Hour Vital Signs Date Time Temp Pulse Resp B/P (MAP) Pulse Ox O2 Delivery O2 Flow Rate FiO2 09/18/17 11:58 97.7 99 18 94/61 95 Room Air 97.7 09/18/17 08:00 98.3 105 20 98/66 95 Room Air 98.3 09/18/17 04:00 97.2 105 22 102/71 96 97.2 09/18/17 04:00 Room Air 09/18/17 00:00 Room Air 09/18/17 00:00 97.7 118 20 120/81 96 97.7 09/17/17 20:00 Room Air 09/17/17 20:00 98.0 70 20 122/79 96 98.0 09/17/17 16:00 98.4 121 20 120/81 97 98.4 Intake and Output 09/17/17 09/18/17 19:00 07:00 Intake Total 1456.667 ml 1183.333 ml Balance 1456.667 ml 1183.333 ml Intake Oral 740 ml IV Total 716.667 ml 1183.333 ml # Voids 6 2 Laboratory Tests 09/18/17 08:05: White Blood Count 9.2, Red Blood Count 4.19L, Hemoglobin 12.9L, Hematocrit 37.8L , Mean Corpuscular Volume 90, Mean Corpuscular Hemoglobin 30.6, Mean Corpuscular Hemoglobin Concent 34.0, Red Cell Distribution Width 13.4, Platelet Count 139L, Mean Platelet Volume 11.5H, Neutrophils (%) (Auto) 68.0, Lymphocytes (%) (Auto) 22.4, Monocytes (%) (Auto) 5.2, Eosinophils (%) (Auto) 3.8H, Basophils (%) (Auto) 0.7, Sodium Level 148H, Potassium Level 3.3L, Chloride Level 113H, Carbon Dioxide Level 28, Anion Gap 7, Blood Urea Nitrogen 18, Creatinine 0.7, Estimat Glomerular Filtration Rate > 60, Glucose Level 92, Calcium Level 8.5, Magnesium Level 1.7L Height (Feet): 5 Height (Inches): 6.00 Weight (Pounds): 113 General Appearance: lethargic, confused EENT: normal ENT inspection Neck: normal alignment Cardiovascular: normal peripheral pulses, normal rate, regular rhythm Respiratory/Chest: chest wall non-tender, lungs clear, normal breath sounds Abdomen: normal bowel sounds, non tender, soft Extremities: normal inspection Edema: no edema noted Arm (L), no edema noted Arm (R), no edema noted Leg (L), no edema noted Leg (R), no edema noted Pedal (L), no edema noted Pedal (R), no edema noted Generalized Neurologic: motor weakness Skin: normal pigmentation, warm/dry Objective r sacral w 2" x 2" are redness and swelling ARNOLDO JESUS Sep 18, 2017 15:55
[2017-09-18 16:00] VITALS: BP 99/67
[2017-09-18] MEDS: Vancomycin 750mg/NS 250ml IVPB SCH (17:31)
[2017-09-18] MEDS ORDERED: FENOFIBRATE43 MG ORAL (19:50)
[2017-09-18] MEDS ORDERED: VANCOMYCIN1 GM/2502 IVPB ×2 (19:52→19:53)
[2017-09-18 20:00] VITALS: BP 127/83
[2017-09-18] MEDS: Donepezil 5mg Tab ORAL SCH (21:21)
--- NOTE | 2017-09-18 23:57 | Cardiology Progress Note ---
Assessment/Plan Assessment/Plan 1. Sinus tachycardia, responded well to hydration, free water deficit better, serum Na down to 148. 2. Hypokalemia, continue potassium replacement to avoid cardiac arrhythmias. 3. History of hypertension. Subjective Subjective No cardiac events. Not communicative. Not on the telemetry unit. Objective Last 24 Hour Vital Signs Date Time Temp Pulse Resp B/P (MAP) Pulse Ox O2 Delivery O2 Flow Rate FiO2 09/18/17 20:00 97.7 72 22 127/83 99 Room Air 97.7 09/18/17 16:00 98.6 85 19 99/67 99 Room Air 98.6 09/18/17 11:58 97.7 99 18 94/61 95 Room Air 97.7 09/18/17 08:00 98.3 105 20 98/66 95 Room Air 98.3 09/18/17 04:00 97.2 105 22 102/71 96 97.2 09/18/17 04:00 Room Air 09/18/17 00:00 Room Air 09/18/17 00:00 97.7 118 20 120/81 96 97.7 Intake and Output 09/17/17 09/18/17 19:00 07:00 Intake Total 1456.667 ml 1183.333 ml Balance 1456.667 ml 1183.333 ml Intake Oral 740 ml IV Total 716.667 ml 1183.333 ml # Voids 6 2 Laboratory Tests Test 09/18/17 08:05 White Blood Count 9.2 K/UL (4.8-10.8) Red Blood Count 4.19 M/UL (4.70-6.10) L Hemoglobin 12.9 G/DL (14.2-18.0) L Hematocrit 37.8 % (42.0-52.0) L Mean Corpuscular Volume 90 FL (80-99) Mean Corpuscular Hemoglobin 30.6 PG (27.0-31.0) Mean Corpuscular Hemoglobin Concent 34.0 G/DL (32.0-36.0) Red Cell Distribution Width 13.4 % (11.6-14.8) Platelet Count 139 K/UL (150-450) L Mean Platelet Volume 11.5 FL (6.5-10.1) H Neutrophils (%) (Auto) 68.0 % (45.0-75.0) Lymphocytes (%) (Auto) 22.4 % (20.0-45.0) Monocytes (%) (Auto) 5.2 % (1.0-10.0) Eosinophils (%) (Auto) 3.8 % (0.0-3.0) H Basophils (%) (Auto) 0.7 % (0.0-2.0) Sodium Level 148 MMOL/L (136-145) H Potassium Level 3.3 MMOL/L (3.5-5.1) L Chloride Level 113 MMOL/L (98-107) H Carbon Dioxide Level 28 MMOL/L (21-32) Anion Gap 7 mmol/L (5-15) Blood Urea Nitrogen 18 mg/dL (7-18) Creatinine 0.7 MG/DL (0.55-1.30) Estimat Glomerular Filtration Rate > 60 mL/min (>60) Glucose Level 92 MG/DL (74-106) Calcium Level 8.5 MG/DL (8.5-10.1) Magnesium Level 1.7 MG/DL (1.8-2.4) L Microbiology Date/Time Source Procedure Growth Status 09/16/17 14:19 Blood Blood Culture - Preliminary NO GROWTH AFTER 24 HOURS Resulted 09/16/17 14:00 Blood Blood Culture - Preliminary NO GROWTH AFTER 24 HOURS Resulted 09/16/17 14:55 Nasal Nares MRSA Culture - Final Staphylococcus Aureus - Mrsa Complete 09/16/17 14:55 Rectum VRE Culture - Final NO VANCOMYCIN RESISTANT ENTEROCOCCUS ... Complete Objective HEENT: Atraumatic and normocephalic. Pupils are equal, round, reactive to light and accommodation. Extraocular muscles intact. NECK: JVP less than 5 centimeter. No carotid bruit. Carotid upstrokes 2+ bilaterally. CARDIOVASCULAR: Normal S1 and S2. Regular rate and rhythm. No murmurs, gallops, or rubs. Tachycardic. PMI is at fourth intercostal space at the midclavicular line. LUNGS: Clear to auscultation bilaterally. ABDOMEN: Soft, nontender, nondistended. No hepatosplenomegaly. Positive bowel sounds. EXTREMITIES: No evidence of edema, clubbing, or cyanosis. There is erythema and induration over buttocks on both sides. SHAYLEE ADAM Sep 18, 2017 23:57
--- NOTE | 2017-09-19 13:00 | Discharge Summary ---
Discharge Summary Discharge Summary Discharge Summary DATE OF ADMISSION: 09/16/2017 DATE OF DISCHARGE: 09/18/2017 CONSULTANTS: Dr. Walt Rendon [facility]SE: Patient is a 67-year-old male who is form [facility] presented to ED for valuation of increased redness on the right buttock and sacral area. He has medical history significant for dementia, depression, dyslipidemia, seizure disorder. On evaluation at ED, patient was tachycardic at the rate of 126. Potassium was 3.3, sodium was 156. He was admitted for cellulitis of the buttocks, and for evaluation of electrolyte imbalance and tachycardia. He was seen by vice president industrial relations. EKG with sinus tachycardia however no significant ST to T wave abnormalities. Tachycardia was most likely due to intravascular volume depletion as evidenced by hypernatremia. He was given potassium replacements and IV hydration. He was seen by Dr. Wan, he underwent bedside incision and drainage of the right buttock abscess. He was given wound care and was placed on vancomycin. Tachycardia improved with hydration, sodium level went down. Blood cultures did not isolate any growth. He was eventually discharged back to [facility]. FINAL DIAGNOSES: Right buttock cellulitis/abscess, status post I&D Sinus tachycardia due to volume depletion/dehydration Hypokalemia Dementia Seizure disorder Hyperlipidemia Hypertension Schizophrenia Depression/anxiety DISPOSITION: Patient was discharged back to [facility]. DISCHARGE MEDICATIONS: Refer to Discharge Medication List. Continue with vancomycin for 7 more days. I have been assigned to dictate discharge summary on this account, and I was not involved in the patient's management. Amber Reis NP Sep 19, 2017 13:00
== END 2017-09-18 21:45 | DRG 602 ==
LOC: EDSEX 12:56 → EDBD 12:56 → EMR 14:07 → 4E 15:18 → EDBEDREQ 15:28 → 4E 17:05
PROC: 0H98XZZ Drainage of Buttock Skin, External Approach (ICD-10-PCS; principal; 2017-09-17)
DX: L03.317 Cellulitis of buttock (principal); G93.40 Encephalopathy, unspecified; N39.0 Urinary tract infection, site not specified; E87.0 Hyperosmolality and hypernatremia; E87.6 Hypokalemia; F03.90 Unspecified dementia, unspecified severity, without behavioral disturbance, psychotic disturbance, mood disturbance, and anxiety; L02.31 Cutaneous abscess of buttock; E86.0 Dehydration; R00.0 Tachycardia, unspecified; G40.909 Epilepsy, unspecified, not intractable, without status epilepticus; E78.5 Hyperlipidemia, unspecified; F20.9 Schizophrenia, unspecified; F41.8 Other specified anxiety disorders; I10 Essential (primary) hypertension; M24.559 Contracture, unspecified hip
CPT/HCPCS: 36415; 71045; 80048; 80053; 80299; 81001; 81003; 82043; 82044; 82550; 82553; 82570; 83605; 83735; 84100; 84300; 84484; 85007; 85025; 85610; 85730; 86850; 86900; 86901; 87040; 87081; 89050; 93005; 97803; 99285